=== PATIENT | female | born 1960 | race Caucasian/White ===

== ENCOUNTER → 2023-06-21 09:13 | Outpatient (CLI) | payer BC, SELFPAY ==
--- NOTE | ~2023-06-21 | XR_ITS ---
EXAMINATION: XR chest 2V DATE: 06/21/2023 09:22 INDICATION: Shortness of breath TECHNIQUE: PA and lateral views of the chest are obtained. COMPARISON: 02/24/2018 FINDINGS: The lungs are free of acute opacities. No pleural effusion or pneumothorax. The cardiomedia stinal silhouette is normal. There is moderate thoracic spondylosis. There is a moderate-sized slidin g hiatal hernia. IMPRESSION: 1. No acute cardiopulmonary abnormality. 2. Moderate-sized sliding hiatal hernia. Recommend clinical correlation for reflux which can result i n respiratory symptoms. Reviewed, dictated and finalized at location L. HANDISE COORDINATOR IMPRESSION: 1. No acute cardiopulmonary abnormality. 2. Moderate-sized sliding hiatal hernia. Recommend clinical correlation for ref lux which can result in respiratory symptoms.
== END ==
PROVIDERS: PCP Family Medicine; Visit Provider Family Medicine
DX: K44.9 Diaphragmatic hernia without obstruction or gangrene (principal); J45.909 Unspecified asthma, uncomplicated
CPT/HCPCS: 71046

== ENCOUNTER 2023-07-18 09:22 | Outpatient (CLI) | payer BC, SELFPAY ==
--- NOTE | 2023-07-18 09:26 | ECHO_ITS ---
Patient Info Name: Evon Ramos Age: 62 years : 1960 Gender: Female Ht: 66 in Wt: 240 lbs BSA: 2.30 m2 HR: 70 bpm BP: 145 / 93 mmHg Technical Quality: Fair Exam Date: 07/18/2023 9:43 AM Exam Location: Echo Lab Patient Status: Outpatient Admit Date: 07/18/2023 Staff Ordering Physician: Prakash Walker MD Fire Control Assistant: Sindi Underwood RDCS Attending Provider: Prakash Walker MD Referring Physician: Denise QUINTANILLA; Exam Type: CA echo doppler color flow Study Info Indications R06.02 - Shortness of breath Complete two-dimensional, color flow and Doppler transthoracic echocardiogram is performed. Summary 1. Complete two-dimensional, color flow and Doppler transthoracic echocardiogram is performed. 2. Left ventricular chamber dimension is mildly enlarged. 3. Left ventricular systolic function is normal, estimated at 55-60%. 4. The left ventricular diastolic function is grade I diastolic dysfunction. 5. E/e' 20 is elevated. 6. Left atrial chamber dimension is moderately enlarged. 7. There is mild to moderate mitral valve regurgitation. 8. There is trace tricuspid valve regurgitation. 9. No pulmonary hypertension, estimated pulmonary arterial systolic pressure is 32 mmHg. Left Ventricle E/e' 20 is elevated. Left ventricular chamber dimension is mildly enlarged. Left ventricular systolic function is normal, estimated at 55-60%. The left ventricular diastolic function is grade I diastolic dysfunction. Right Ventricle Right ventricular systolic function is normal and with normal TAPSE 2.0 cm. Right ventricular chamber dimension is normal. Left Atria Left atrial chamber dimension is moderately enlarged. Right Atria Right atrial chamber dimension is normal. Aortic Valve The aortic valve is trileaflet. There is no aortic valve stenosis. There is no aortic valve regurgitation. Pulmonic Valve There is no pulmonic regurgitation. Mitral Valve There is no mitral valve stenosis. There is mild to moderate mitral valve regurgitation. Tricuspid Valve There is trace tricuspid valve regurgitation. No pulmonary hypertension, estimated pulmonary arterial systolic pressure is 32 mmHg. Pericardium/Pleural There is no pericardial effusion. Inferior Vena Cava Normal inferior vena cava with >50% collapse upon inspiration consistent with normal right atrial pressure, 5 mmHg. Aorta The aortic root size at the sinus of Valsalva is normal. Left Ventricular Outflow Tract Name Value Normal LVOT 2D LVOT Diameter 2.0 cm LVOT Doppler LVOT Peak Gradient 5 mmHg LVOT Mean Gradient 3 mmHg LVOT VTI 23 cm LVOT VTI/AV VTI Ratio 0.8 LVOT Stroke Volume 76 ml LVOT CO 5.3 l/min LVOT CI 2.3 l/min/m2 Pulmonic Valve Name Value Normal RVOT Doppler RVOT Pe
== END 2023-07-18 09:23 | disposition home or self-care (01) ==
LOC: ANHCARD 09:24
PROVIDERS: PCP Family Medicine; Visit Provider Family Medicine
DX: R06.02 Shortness of breath (principal); I08.1 Rheumatic disorders of both mitral and tricuspid valves
CPT/HCPCS: 93306

== ENCOUNTER 2024-04-05 15:48 | Outpatient (CLI) | payer OTHER, SELFPAY ==
--- NOTE | ~2024-04-05 | XR_ITS ---
EXAMINATION: XR hip LT min 2V DATE: 04/05/2024 16:09 INDICATION: Left hip pain. TECHNIQUE: 2 views of left hip were obtained. COMPARISON: None. FINDINGS: Alignment is normal. No fracture. There is mild left hip osteoarthritis. IMPRESSION: 1. Mild left hip osteoarthritis. Reviewed, dictated and finalized at location A. CE NURSE
== END 2024-04-05 15:49 | disposition home or self-care (01) ==
LOC: MICIMG 15:48
PROVIDERS: PCP Family Medicine; Visit Provider Family Medicine
DX: M16.12 Unilateral primary osteoarthritis, left hip (principal)
CPT/HCPCS: 73502

== ENCOUNTER 2024-05-23 12:36 | Outpatient (CLI) | payer OTHER, SELFPAY ==
--- NOTE | ~2024-05-23 | MR_ITS ---
EXAMINATION: MR hip LT wo con DATE: 05/23/2024 13:27 INDICATION: Left hip pain TECHNIQUE: Magnetic resonance imaging (MRI) of the left hip was performed without intravenous contra st. Sequences included full-field axial PD-weighted FS FSE and T1-weighted FSE, coronal of the pelvis with PD-weighted FS FSE, T2-weighted FSE and T1-weighted FSE, small field of view of the left hip w ith axial PD-weighted FS FSE, sagittal PD-weighted FS FSE, coronal PD-weighted FS FSE and coronal T2 weighted FSE. Additional radial T1-weighted FGR oriented orthogonal to the acetabular rim were obtai derrick for evaluation of the labrum. COMPARISON: Radiographs dated 04/30/2024 FINDINGS: Bones/labrum/cartilage: Mild lower lumbar levocurvature with severe spondylosis. Alignment is otherwise normal. No fracture, avascular necrosis or pathologic marrow replacing process. Mild osteoarthritis at the left hip with a nterosuperior predominant nonuniform joint space narrowing with partial thickness cartilage loss with out degenerative subchondral changes. Degenerative tearing of the anterosuperior left acetabular labr um. Fluid: Asymmetric small left hip joint effusion. There is mild increased fluid signal overlying the left gre ater trochanter consistent with mild trochanteric bursitis. No other abnormal fluid collections. Soft tissues: There is asymmetric mild right-sided and moderate left-sided fatty atrophy of portions of the gluteus minimus muscle bellies. Muscle and visualized pelvis and proximal thighs appears otherwise symmetric . The iliopsoas, gluteal and proximal hamstring tendons are normal. There is abnormal thickening of t he endometrial complex measures approximately 7 mm. On the coronal T1-weighted images post signal int ensity filling defect within the T1 hyperintense endometrial complex which measures up to 7 mm in thi ckness. Limited evaluation of visceral organs of the pelvis is otherwise unremarkable. No pathologic ally enlarged pelvic/inguinal lymphadenopathy. IMPRESSION: 1. Mild left hip osteoarthritis with degenerative tearing at the anterosuperior labrum and small join t effusion. 2. Mild left trochanteric bursitis. 3. Mild lower lumbar levocurvature with severe spondylosis. 4. Heterogeneous appearance to the thickened endometrial complex. Correlate for vaginal bleeding and would consider pelvic ultrasound for further evaluation. Reviewed, dictated and finalized at location A. RESCUE FIRE FIGHTER CRASH FIRE IMPRESSION: 1. Mild left hip osteoarthritis with degenerative tearing at the anterosuperior labrum and small joint effusion. 2. Mild left trochanteric bursitis. 3. Mild lower lumbar levocurvature with severe spondylosis. 4. Heterogeneous appearance to the thickened endometrial complex. Correlate for vaginal bleeding and would consider pelvic ultrasound for further evaluation.
== END 2024-05-23 12:37 | disposition home or self-care (01) ==
LOC: GOSHIMG 12:37
PROVIDERS: PCP Family Medicine; Visit Provider Orthopaedic Surgery
DX: M16.12 Unilateral primary osteoarthritis, left hip (principal); M25.552 Pain in left hip; M71.552 Other bursitis, not elsewhere classified, left hip; M43.06 Spondylolysis, lumbar region; M41.86 Other forms of scoliosis, lumbar region; R93.89 Abnormal findings on diagnostic imaging of other specified body structures
CPT/HCPCS: 73721

== ENCOUNTER 2024-07-05 00:43 | Day surgery (SDC) | payer OTHER, SELFPAY ==
[2024-06-29 11:03] VITALS: BMI 38.4
--- NOTE | 2024-06-29 11:22 | PC.NURSE ---
Report to the Outpatient Waiting Room, entrance under the green pavilion located off [facility], at time ___8:15AM____ on date __07/05/24 . Planned Procedure Time: ___10:15AM .? Time changes happen often and if your time is changed the preop area will call you the afternoon before. - You and your visitor will be asked to self-screen and do not enter if you have any COVID symptoms. Please call surgeon if you need to reschedule. - A mask is optional within the hospital at this time. Patients may have clear liquids (water, carbonated beverages, clear teas, apple juice) until 3 hours prior to surgery (7:15AM) with a maximum of 20 ounces. - No food from midnight until time of surgery and no smoking, or chewing tobacco (or any form of nicotine). No chewing gum, candy or mints. Take only the following medications with a SIP of water on the morning of surgery: SYMBICORT INHALER. MAY USE ALBUTEROL INHALER NEEDED. DO NOT STOP ANY OF YOUR OTHER PRESCRIPTION MEDICATIONS PRIOR TO SURGERY EXCEPT THE FOLLOWING Hold all vitamins and supplements for 3 days per anesthesiologist. Medications to discontinue per physician HOLD DICLOFENAC PER DR ORELLANA Date to take last dose Please no make-up, nail maori, hairspray, perfume, deodorant, or body powder the day of surgery.? No jewelry (including any body piercings) or valuables the day of surgery, leave them at home.? Please take a shower or bath the night before, or the morning of, surgery with an antibacterial soap.? Wear comfortable, loose fitting clothing.? - Jewelry must be removed prior to entering the operating room.? Rings and piercings that are not removed may be cut off. - The hospital will not accept responsibility for valuables.? - Please leave all valuables, including medications, at home the day of surgery. If you are going home after surgery, a licensed charter driver must drive you home.? - NO public transportation without another adult if you receive anesthesia. - We recommend that an adult stay with you for 24 hours following discharge. - We also recommend that you do not drive, make important decision, drink alcoholic beverages, or take any drugs that were not prescribed by your health care provider for at least 24 hours after your discharge time. Follow any additional instructions given to you from your surgeon. Telephone instructions given to ___PATIENT and asked if any additional questions and then verbalized understanding. Patient advised to call surgeon office or pre surgery nurse liaison [phone] if any additional questions.
--- NOTE | 2024-07-03 17:27 | WPDHPUPDATE1 ---
History and Physical Update Update Date/Time: 07/03/24 17:27 ultrasound performed due to endometrial hypertrophy incidentally found on imaging of the pelvis due to hip pain. Ultrasound did reveal essentially normal size uterus at [id number] though endometrial thickness of 11mm which is thick and irregular. She has had no bleeding or pain specific to the uterus, does need endometrial sampling. Assessment: 1. Endometrial hypertrophy in a postmenopausal female Plan: 1. Hysteroscopy with uterine curettings History and Physical has been reviewed, including an updated exam of the patient. There are NO changes in the patient's condition. Risks, benefits, and alternatives have been discussed and questions answered. Patient agrees to proceed with procedure.
--- OUTSIDE RECORDS SUMMARY | 2024-07-05 00:48 | XMS_ITS | Clinical Summary ---
Author Organization [facility] Address [address] [place] [address] Care Team Providers Care Cardiac Cath Technician Name Role Phone Prakash Walker MD Primary Care Provider [phone] Allergies Active Allergy Reactions Criticality Noted Date Comments Penicillins Medications [id number] a-fish oil-D3 (VITAMIN-D + OMEGA-3) 350 mg-400 mg- 1,000 unit capsule 0 0 6 Active albuterol HFA (PROAIR HFA) 90 mcg/actuation inhaler inhale 2 puff by inhalation route every 4 - 6 hours as needed 0 Inhaler 0 6 Active budesonide-form oterol (SYMBICORT) 80-4.5 mcg/actuation inhaler inhale 2 puff by inhalation route 2 times every day in the morning and evening 0 Inhaler 0 6 Active Active Problems Problem Noted Date Diagnosed Date Nonrheumatic mitral valve regurgitation 03/05/20 24 HICKS (dyspnea on exertion) 01/16/2024 Fatigue due to excessive exertion 01/16/2024 Encounters Date Type Department Care Team Description 05/03/2024 10:07 AM LIFE SCIENCE RESEARCH ASSISTANT - 05/03/2024 11:59 PM LIFE SCIENCE RESEARCH ASSISTANT Hospital Encounter [facility] Imaging and Radiiology [address] [place] [phone] Asymptomatic menopausal state Discharge Disposition: Discharge to home or self care 04/13/2024 11:00 AM LIFE SCIENCE RESEARCH ASSISTANT - 04/13/2024 11:59 PM LIFE SCIENCE RESEARCH ASSISTANT Hospital Encounter [facility] ` [address] [place] [address] Other intra-abdominal and pelvic swelling, mass and lump Discharge Disposition: Discharge to home or self care from Last 3 Months Immunizations Immunization Administration Dates Next Due Influenza, Trivalent, IM (MDV) 02/07/2014 ZOSTER Recombinant 05/17/2018,02/23/2018 Surgical History Surgery Date Site/Laterality Comments TONSILLECTOMY Tonsillectomy KNEE ARTHROSCOPY Arthroscopy knee KNEE ARTHROSCOPY W/ LATERAL RELEASE knee.....1991 CATARACT EXTRACTION 2019 Medical History Medical History Date Comments Asthma Asthma Hx Other Medical right knee 1989 Hx Other Medical right knee 2005 Hx Other Medical Sinus Surgery 2 014 Shortness of breath Family History Medical History Relation Name Comments Diabetes Brother Joey Swanson COPD Father [place] Arthritis Mother Niki Swanson Cardiac pacemaker Mother Niki Swanson Hypertension Mother Niki Ruizchojames Kidney disease Mother Niki Swanson Arthritis Other 1 Family history of Arthritis; Diabetes type II Other 2 Family hist ory of Diabetes mellitus type 2; Heart disease Other 3 Family history of heart problems; Kidney disease Other 4 Family histor y of kidney problems; Lung disease Other 5 Family history of Lung problems; Relation Name Status Comments Brother Joey Swanson Father [place] Mother Niki Swanson Other 1 Other 2 Other 3 Other 4 Other 5 Social History Tobacco Use Types Packs/Day Years Used Date Smoking Tobacco: Never Smokeless Tobacco: Never Tobacco Cessation:Counseling Given: Not Answered Comments Unknown Sex and Gender Information Value Date Recorded Sex Assigned at Not on file Legal Sex Female 3:22 AM LIFE SCIENCE RESEARCH ASSISTANT Gender Identity Not on file Sexual Orientation Not on file Obstetrics History Last Filed Vital Signs Vital Sign Reading Time Taken Comments Blood Pressure 112/76 03/05/2024 11:25 AM LIFE SCIENCE RESEARCH ASSISTANT Pulse 66 03/05/2024 11:25 AM LIFE SCIENCE RESEARCH ASSISTANT Temperature - - Respiratory Rate - - Oxygen Saturation 98% 03/05/2024 11: 25 AM LIFE SCIENCE RESEARCH ASSISTANT Inhaled Oxygen Concentration - - Weight 112.5 kg (248 lb 1.6 oz) 024 11:25 AM LIFE SCIENCE RESEARCH ASSISTANT Height 167.6 cm (5' 6 ) 03/05/2024 11:2 5 AM LIFE SCIENCE RESEARCH ASSISTANT Body Mass Index 40.04 03/05/2024 11:25 AM LIFE SCIENCE RESEARCH ASSISTANT Plan of Treatment Health Maintenance Due Date Last Done Comments Cervical Cancer Screening 1960 Depression Screening 1960 Fall Risk Assessment 1960 Hepatitis C Screening 1960 DTaP/Tdap/Td Vaccine (1 - Tdap) 1969 Hepatitis B Screening 1976 Pneumococcal vaccine 65+ (1 of 1 - PCV) 2008 Well Visit 65+ 09/30/2023 Influenza Vaccine (#1) 2023 02/07/2014 Colon Cancer Screening-Colonoscopy 01/15/2024 01/14/2014, 01/11/2014 Breast Cancer Screening-Mammogram 03/08/2025 03/08/2024, 03/01/2023, 01/04/2022, Additional history exists Osteoporosis Screening-Bone Density Scan 05/03/2026 05/03/2024 Colon Cancer Screening-CT Colonography Discontinued 01/14/2014, 01/11/2014 Colon Cancer Screening-DNA Stool Discontinued 01/15/20 14, 01/11/2014 Colon Cancer Screening-FIT Discontinued 01/14/2014, Colon Cancer Screening-Sigmoidoscopy Discontinued 01/14/2014, 01/11/2014 Zoster Vaccine Completed 05/17/2018, 02/23/2018 Procedures Procedure Name Priority Date/Time Associated Diagnosis Comments DEXA AXIAL SKELETON BONE DENSITY 1 OR MORE SITES Schedule Routine, Read Routine (OP Routine) 05/03/2024 10:49 AM LIFE SCIENCE RESEARCH ASSISTANT Asymptomatic menopausal state US GROIN MASS/HERNIA LEFT Schedule Routine, Read Routine (OP Routine) 04/13/2024 11:37 AM LIFE SCIENCE RESEARCH ASSISTANT Other intra-abdominal and pelvic swelling, mass and lump SCREENING MAMMOGRAM BILATERAL W BRENNAN Schedule Routine, Read Routine (OP Routine) 03/08/2024 11:21 AM LIFE SCIENCE RESEARCH ASSISTANT Screening mammogram, encounter for COLONOSCOPY 01/14/2014 12:00 AM CDT from Last 3 Months or Most Recently Relevant to Health Maintenance Results * Dexa Axial Skeleton Bone Density 1 or 2 Site (05/03/2024 10:49 AM LIFE SCIENCE RESEARCH ASSISTANT) Anatomical Region Laterality Modality Body N/A Other 05/03/2024 11:0 8 AM LIFE SCIENCE RESEARCH ASSISTANT Impressions 05/03/2024 11:08 AM LIFE SCIENCE RESEARCH ASSISTANT Normal bone mineral density of lumbar spine at L1-L4 and the left hip. Electronically signed by: Boogie Carrillo M.D. Narrative 05/03/2024 11:08 AM LIFE SCIENCE RESEARCH ASSISTANT Examination: DEXA AXIAL SKELETON BONE DENSITY 1 OR MORE SITES Date: 05/03/2024 10:30 AM History: Osteoporosis screening. Comparison: None. Findings: The bone densitometry of the L1-L4 region, the left femoral neck and the total left hip was calculated using dual-energy x-ray absorptiometry. Summary: Bone mineral density (BMD) of the lumbar spine (L1-4): T-score 0.3; 103% of normal Bone mineral density (BMD) of the total left hip: T-score 1.1; and 14% of normal Bone mineral density (BMD) of the left femoral neck: T-score 0.2; 102% of normal Procedure Note Boogie Carrillo MD - 05/03/2024 Examination: DEXA AXIAL SKELETON BONE DENSITY 1 OR MORE SITES Date: 05/03/2024 10:30 AM History: Osteoporosis screening. Comparison: None. Findings: The bone densitometry of the L1-L4 region, the left femoral neck and the total left hip was calculated using dual-energy x-ray absorptiometry. Summary: Bone mineral density (BMD) of the lumbar spine (L1-4): T-score 0.3; 103% of normal Bone mineral density (BMD) of the total left hip: T-score 1.1; and 14% of normal Bone mineral density (BMD) of the left femoral neck: T-score 0.2; 102% of normal IMPRESSION: Normal bone mineral density of lumbar spine at L1-L4 and the left hip. Electronically signed by: Boogie Carrillo M.D. us Prakash Walker MD IMG DXA PROCEDURES Final Resu lt * US Groin Mass Hernia Left (04/13/2024 11:37 AM LIFE SCIENCE RESEARCH ASSISTANT) Anatomical Region Laterality Modality Abdomen Left Ultrasound 04/13/2024 2:46 PM LIFE SCIENCE RESEARCH ASSISTANT Impressions 04/13/2024 2:46 PM LIFE SCIENCE RESEARCH ASSISTANT FINDINGS/IMPRESSION: Increased subcutaneous fat within the region of palpable concern in the left thigh as compared to the right. However, no definitive encapsulated lipoma is visualized. Electronically signed by: David Barnes II, D.O. Narrative 04/13/2024 2:46 PM LIFE SCIENCE RESEARCH ASSISTANT EXAMINATION: US GROIN MASS HERNIA LEFT DATE: 04/13/2024 11:30 AM HISTORY: thigh swelling COMPARISON: None. Technique: Grayscale and color Doppler images were obtained in the left inner thigh region of palpable concern. Procedure Note David Barnes II, DO - 04/13/2024 EXAMINATION: US GROIN MASS HERNIA LEFT DATE: 04/13/2024 11:30 AM HISTORY: thigh swelling COMPARISON: None. Technique: Grayscale and color Doppler images were obtained in the left inner thigh region of palpable concern. IMPRESSION: FINDINGS/IMPRESSION: Increased subcutaneous fat within the region of palpable concern in the left thigh as compared to the right. However, no definitive encapsulated lipoma is visualized. Electronically signed by: David Barnes II, D.O. us Prakash Walker MD IMG US PROCEDURES Final Resul t * Screening Mammogram Bilateral W Brennan (03/08/2024 11:21 AM LIFE SCIENCE RESEARCH ASSISTANT) Anatomical Region Laterality Modality Breast Bilateral Mammography Narrative 03/09/2024 12:02 PM LIFE SCIENCE RESEARCH ASSISTANT Mammogram Technique: Bilateral Digital Breast Tomosynthesis, Bilateral C-view 2D Screening mammogram. Views obtained: bilateral craniocaudal and bilateral mediolateral oblique. Computer Aided Detection was performed. Mammogram Findings: The present examination has been compared to prior imaging studies performed at [facility] on 07/28/2017, 08/09/2018, 11/01/2019, 11/11/2020, 01/04/2022 and 03/01/2023. The breasts are heterogeneously dense, which may obscure small masses. There are multiple similar stable areas of architectural distortion in both breasts. The patient has had several benign biopsies of these areas in the past. There is no suspicious abnormality in either breast. Impression: There is no mammographic evidence of malignancy. Annual screening mammography is recommended. If supplemental screening is desired, breast MRI would be recommended in this patient with heterogeneously dense breasts. OVERALL FINAL ASSESSMENT: BI-RADS CATEGORY 2: Benign. Procedure Note Dakotah Ramirez MD - 03/09/2024 Mammogram Technique: Bilateral Digital Breast Tomosynthesis, Bilateral C-view 2D Screening mammogram. Views obtained: bilateral craniocaudal and bilateral mediolateral oblique. Computer Aided Detection was performed. Mammogram Findings: The present examination has been compared to prior imaging studies performed at [facility] on 07/28/2017, 08/09/2018,11/01/2019, 11/11/2020, 01/04/2022 and 03/01/2023. The breasts are heterogeneously dense, which may obscure small masses. There are multiple similar stable areas of architectural distortion inboth breasts. The patient has had several benign biopsies of these areas in the past. There is no suspicious abnormality in either breast. Impression: There is no mammographic evidence of malignancy. Annual screening mammography is recommended. If supplemental screeningis desired, breast MRI would be recommended in this patient with heterogeneously dense breasts. OVERALL FINAL ASSESSMENT: BI-RADS CATEGORY 2: Benign. us Self Screening Mammogram IMG MAMMO PROCEDURES Fi nal Result * COLONOSCOPY (01/14/2014 12:00 AM CDT) Anatomical Region Laterality Modality Other Narrative 01/14/2014 12:00 AM CDT Ordered by an unspecified provider. Procedure Note Akira Mcneil MD - 01/11/2014 8:50 AM CDT PROCEDURE REPORT Patient: EVON SWANSON Account: [id number] Room No: : 1960 Patient Type: SDS Attend.: David Hollins M.D. Admit Date: 01/11/2014 Dict.: David Hollins M.D. Disch. Date: 01/11/2014 NAME OF PROCEDURE: Colonoscopy HISTORY OF PRESENT ILLNESS This 53-year-old female presents for screening colonoscopy. PHYSICAL EXAM: Well-developed female. Lungs are clear. Cardiovascular exam isunremarkable. PROCEDURE: Colonoscopy was performed with the Olympus video endoscope. The patientwas premedicated by anesthesia. On digital exam, she has grade IV hemorrhoids.We inserted the endoscope and advanced it to the cecum. The colon wasadequately prepped. She has diffuse diverticular disease involving the entirecolon, however, I am not able to demonstrate any evidence of inflammation orneoplasia anywhere through the length of the bowel. The patient tolerated theprocedure without difficulty. POSTOPERATIVE DIAGNOSIS Diffuse diverticulosis. Hemorrhoidal disease. PLAN Surveillance in ten years. David Hollins M.D. DR/ashley TD: 01/15/2014 05:52 CC: Sarahi Nieto M.D. Authenticated by David Hollins MD On 01/17/2014 07:36:04 AM Historical Provider ENDOSCOPY PROCEDURES Sadie l Result from Last 3 Months or Most Recently Relevant to Health Maintenance Insurance [place] [facility] ADVANTAGE CHOICE PPO Member Subscriber Plan / Payer ( fective 2023-Present) Name:Evon Swanson Relation to Subscriber:Self Name:Evon Swanson Payer ID:[id number] ([facility]) Type:MEDICARE RISK OTHER Address: [place] [id number] [facility] ADVANTAGE CHOICE PPO Care Teams Cardiac Cath Technician Relationship Specialty Start Date End Date Prakash Walker MD [address] [place] [address] [place] [address] PCP - General 07/28/16
--- OUTSIDE RECORDS SUMMARY | 2024-07-05 00:48 | XMS_ITS | Encounter Summary ---
Author Organization [facility] Address [address] [place] [address] Care Team Providers Care Maintenance And Engineering Manager Name Role Phone Prakash Walker MD Primary Care Provider [phone] Encounter Details Date Type Department Care Team (Late st Contact Info) Description 09/16/2020 Prep for Procedure [facility] Pre-Admission Testing [address] [place], [place] [id number] Yulissa Barrientos, DPM [address] [facility] [address] [place] [address] Social History Tobacco Use Types Packs/Day Years Used Date Smoking Tobacco: Never Smokeless Tobacco: Never Alcohol Use Standard Drinks/Week Comments Yes 0 (1 standard drink = 0.6 oz pur e alcohol) 1x/week Comments No Sex and Gender Information Value Date Recorded Sex Assigned at Not on file Legal Sex Female 2:33 PM CDT Gender Identity Not on file Sexual Orientation Not on file COVID-19 Exposure Response Date Recorded In the last month, have you been in contact with someone who was confirmed or suspected to have Coronavirus / COVID-19? No / Unsure 09/16/2020 11:50 AM CDT documented as of this encounter Plan of Treatment Not on file documented as of this encounter Visit Diagnoses Diagnosis Preop examination- Primary Preoperative examination, unspecified documented in this encounter Additional Health Concerns Infection Onset Date Last Indicated Resolved Time COVID-19 Rule Out 09/22/2020 09/22/2020 09/23/2020 12:11 AM CDT documented as of this encounter Care Teams Maintenance And Engineering Manager Relationship Specialty Start Date End Date Prakash Walker MD [address] [place] [address] PCP - General FAMILY PRACTICE 09/16/20 documented as of this encounter
--- OUTSIDE RECORDS SUMMARY | 2024-07-05 00:48 | XMS_ITS | Continuity of Care Document ---
Author Organization [facility] Address [address] [facility] [address] [place] [address] Phone Care Team Providers Care Television Equipment Operator Name Role Phone Eddi Lacy PT Unavailable Unavailable Procedures Procedure Date Therapeutic Activities Neuromuscular Re-Ed Therapeutic Exercise Therapeutic Activities Neuromuscular Re-Ed Therapeutic Exercise Therapeutic Activities Neuromuscular Re-Ed Therapeutic Exercise Therapeutic Activities Neuromuscular Re-Ed Therapeutic Exercise Therapeutic Activities Neuromuscular Re-Ed Therapeutic Exercise Therapeutic Activities Neuromuscular Re-Ed Therapeutic Exercise Therapeutic Activities Neuromuscular Re-Ed Therapeutic Exercise PT Evaluation Moderate Complexity Therapeutic Activities Neuromuscular Re-Ed Advance Directives Directive Yes / No Effective Date File Name No Information Encounters Encounter Description Practice Location Reason(s) For Visit Diagnoses Date Provider Providers Copied on Encounter [facility], [address], [place], [place], [id number], tel:[phone] [place] No Information 3 Regino Montague. . Referring Provider: Christel Chauhan , [address], [place], [address]. tel:[phone] [facility], [place], [place], [address], [place] tel:[phone] [place] No Information 3 Regino Eddi. . Referring Provider: Christel Chauhan , [address], [place], [address]. tel:[phone] [facility] [address], [place], [place], [address], [place] tel:[phone] [place] No Information 3 Regino Eddi. . Referring Provider: Christel Chauhan [address], [place], [address]. tel:[phone] [facility], [place], [place], [address], [place] tel:[phone] [place] No Information 3 Regino Eddi. . Referring Provider: Christel Chauhan [address], [place], [address]. tel:[phone] [facility] [address], [place], [place], [address], [place] tel:[phone] [place] No Information 2 Regino Eddi. . Referring Provider: Christel Chauhan [address], [place], [address]. tel:[phone] [facility], [place], [place], [address], [place] tel:[phone] [place] No Information 2 Regino Eddi. . Referring Provider: Christel Chauhan [address], [place], [address]. tel:[phone] [facility], [place], [place], [address], [place] tel:[phone] [place] No Information Dec- 2 Regino Montague. . Referring Provider: Christel Chauhan , [address], [place], [address]. tel:[phone] [facility], [address] [facility] [address], [place], [place], [id number], tel:[phone] [place] No Information 2 Regino Gil . Referring Provider: Christel Chauhan , [address], [place], [address]. tel:[phone] Family History Family Member Type Diagnosis Age At Onset No Information Payers Payer name Insurance type Covered green party ID Millie monk(s) [facility] [id number] Social History Type Description Quantity Date Captured Comments Sex Female Smoking Status No Information Chief Complaint And Reason For Visit No Information Reason For Referral Reason For Referral No Information History Of Present Illness Encounter Date Complaint History Of Prese nt Illness No Information Functional Status Date Functional Assessmen t No Information Instructions Date Instruction Additional Infor mation Dietary needs education Related to Overweight Prescribed activity/exercise edu cation Related to Overweight Assessments Type Assessment Date No Information Patient Care Teams Name Effective Dates (start - stop) Status Members No Information
--- OUTSIDE RECORDS SUMMARY | 2024-07-05 00:48 | XMS_ITS | Clinical Summary ---
Author Organization [facility] Address [facility] [place] [address] Care Team Providers Care Merchandise Stocker Name Role Phone Prakash Walker MD Primary Care Provider [phone] Allergies Active Allergy Reactions Criticality Noted Date Comments Penicillins Unknown 09/16/2020 As a child Medications budesonide-formo terol 160-4.5 MCG/ACT inhaler Inhale 2 puffs into the lungs 2 (two) times daily. Active albuterol sulfate HFA 108 (90 Base) MCG/ACT inhaler Inhale 2 puffs into the lungs every 6 (six) hours as needed for Wheezing. Active Ascorbic Acid (VITAMIN C) 100 MG tablet Take 100 mg by mouth daily. Active Cholecalciferol (VITAMIN D) 50 MCG (2000 UT) Tab Take 1 tablet by mouth daily. Active Active Problems No known active problems Family History Medical History Relation Comments Diabetes Brother 1 Diabetes Brother 2 COPD Father None Mother Relation Status Comments Brother 1 (Age 61) Brother 2 Alive Father (Age 50) Emphysema Mother (Age 96) Social History Tobacco Use Types Packs/Day Years Used Date Smoking Tobacco: Never Smokeless Tobacco: Never Alcohol Use Standard Drinks/Week Comments Yes 0 (1 standard drink = 0.6 oz pur e alcohol) 1x/week Comments No Sex and Gender Information Value Date Recorded Sex Assigned at Not on file Legal Sex Female 2:33 PM CDT Gender Identity Not on file Sexual Orientation Not on file Last Filed Vital Signs Vital Sign Reading Time Taken Comments Blood Pressure 138/89 09/24/2020 10:35 AM CDT Pulse 80 09/24/2020 10:35 AM CDT Temperature 36.6 C (97.8 F) 09/24/2020 10:35 AM CDT Respiratory Rate 18 09/24/2020 10:3 5 AM CDT Oxygen Saturation 95% 09/24/2020 10: 35 AM CDT Inhaled Oxygen Concentration - - Weight 107.8 kg (237 lb 10.5 oz) 09/24/2020 6:22 AM CDT Height 167.6 cm (5' 6 ) 09/24/2020 6:22 AM CDT Body Mass Index 38.36 09/24/2020 6:22 AM CDT Plan of Treatment Health Maintenance Due Date Last Done Comments Colorectal Cancer Screening Colonoscopy (10 Years) 1960 Hepatitis C 1976 DTaP, Tdap and Td Vaccines ( 1 - Tdap) 1977 Mammogram Screening 1998 Zoster Vaccines (2 of 2) 07/12/2018 05/17/2018 Dexa Scan (General) 09/30/2023 Pneumococcal Vaccine: 65+ Ye ars (1 of 1 - PCV) 09/30/2023 COVID-19 Vaccine (2 - 2023-2 5 season) 2023 06/26/2020 Influenza Adult (#1) 2024 RSV Immunization or 60+ Years (1 - 1-dose 75+ series) 2033 Meningococcal B Vaccine Aged Out No l onger eligible based on patient's age to complete this topic Meningococcal Vaccine Aged Out No ondina swapna eligible based on patient's age to complete this topic Pneumococcal Vaccine: Pediat rics (0 to 5 Years) and At-Risk Patients (6 to 64 Years) Aged Out No longer eligi ble based on patient's age to complete this topic RSV Immunizations Under 20 Months Aged Out No longer eligible based on patient's age to complete this topic Medical Devices Implanted Type Area Frame Pulley Mortising Machine Operator Device Identifier Shelf Expiration Date Model / Serial / Lot Screw [place] [employer]a 3.0mm X 16mm - [id number] Implanted:Qty: 2 on 09/24/2020 by Yulissa Barrientos DPM at [facility] [employer] Screw Right: Foot [employer] JOANNE [id number] / / Description:CANNULATED SCREW Osteosynthesis Compression Staple Implanted:Qty: 1 on 09/24/2020 by Yulissa Barrientos DPM at [facility] [employer] Staple Right: Foot [employer] JOANNE [id number] / / Description:COMPRESSION STAP LE Insurance [facility] Care Teams Merchandise Stocker Relationship Specialty Start Date End Date Prakash Walker MD [address] [place] [id number] PCP - General FAMILY PRACTICE 09/16/20
--- OUTSIDE RECORDS SUMMARY | 2024-07-05 00:48 | XMS_ITS | Referral Summary ---
Author Organization [facility] Address [address] [place] [address] Care Team Providers Care Black Top Paver Operator Name Role Phone Prakash Walker MD Primary Care Provider Encounters Date Type Department Care Team Description 05/03/2024 10:07 AM PERSONAL SECRETARY - 05/03/2024 11:59 PM PERSONAL SECRETARY Hospital Encounter [facility] [address] [place] [address] Asymptomatic menopausal state Discharge Disposition: Discharge to home or self care 04/13/2024 11:00 AM PERSONAL SECRETARY - 04/13/2024 11:59 PM PERSONAL SECRETARY Hospital Encounter [facility] [id number] [place] [address] Other intra-abdominal and pelvic swelling, mass and lump Discharge Disposition: Discharge to home or self care from Last 3 Months Allergies Active Allergy Reactions Criticality Noted Date Comments Penicillins Medications [id number] a-fish oil-D3 (VITAMIN-D + OMEGA-3) 350 mg-400 [...] 01/16/2024 Fatigue due to excessive exertion 01/16/2024 Immunizations Immunization Administration Dates Next Due Influenza, Trivalent, IM (MDV) 02/07/2014 ZOSTER Recombinant 05/17/2018,02/23/2018 Social History Tobacco Use Types Packs/Day Years Used Date Smoking Tobacco: Never Smokeless Tobacco: Never Tobacco Cessation:Counseling Given: Not Answered Comments Unknown Sex and Gender Information Value Date Recorded Sex Assigned at Not on file Legal Sex Female 3:22 AM PERSONAL SECRETARY Gender Identity Not on file Sexual Orientation Not on file Last Filed Vital Signs Vital Sign Reading Time Taken Comments Blood Pressure 112/76 03/05/2024 11:25 AM PERSONAL SECRETARY Pulse 66 03/05/2024 11:25 AM PERSONAL SECRETARY Temperature - - Respiratory Rate - - Oxygen Saturation 98% 03/05/2024 11: 25 AM PERSONAL SECRETARY Inhaled Oxygen Concentration - - Weight 112.5 kg (248 lb 1.6 oz) 024 11:25 AM PERSONAL SECRETARY Height 167.6 cm (5' 6 ) 03/05/2024 11:2 5 AM PERSONAL SECRETARY Body Mass Index 40.04 03/05/2024 11:25 AM PERSONAL SECRETARY Plan of Treatment Not on file Procedures Procedure Name Priority Date/Time Associated Diagnosis Comments DEXA AXIAL SKELETON BONE DENSITY 1 OR MORE SITES Schedule Routine, Read Routine (OP Routine) 05/03/2024 10:49 AM PERSONAL SECRETARY Asymptomatic menopausal state US GROIN MASS/HERNIA LEFT Schedule Routine, Read Routine (OP Routine) 04/13/2024 11:37 AM PERSONAL SECRETARY Other intra-abdominal and pelvic swelling, mass and lump SCREENING MAMMOGRAM BILATERAL W BRENNAN Schedule Routine, Read Routine (OP Routine) 03/08/2024 11:21 AM PERSONAL SECRETARY Screening mammogram, encounter for COLONOSCOPY 01/14/2014 12:00 AM CDT from Last 3 Months or Most Recently Relevant to Health Maintenance Results * Dexa Axial Skeleton Bone Density 1 or 2 Site (05/03/2024 10:49 AM PERSONAL SECRETARY) Anatomical Region Laterality Modality Body N/A Other 05/03/2024 11:0 8 AM PERSONAL SECRETARY Impressions 05/03/2024 11:08 AM PERSONAL SECRETARY Normal bone mineral density of lumbar spine at L1-L4 and the left hip. Electronically signed by: Boogie Carrillo M.D. Narrative 05/03/2024 11:08 AM PERSONAL SECRETARY Examination: DEXA AXIAL SKELETON BONE DENSITY 1 [...] Groin Mass Hernia Left (04/13/2024 11:37 AM PERSONAL SECRETARY) Anatomical Region Laterality Modality Abdomen Left Ultrasound 04/13/2024 2:46 PM PERSONAL SECRETARY Impressions 04/13/2024 2:46 PM PERSONAL SECRETARY FINDINGS/IMPRESSION: Increased subcutaneous fat within the region of palpable concern in the left thigh as compared to the right. However, no definitive encapsulated lipoma is visualized. Electronically signed by: David Barnes II, D.O. Narrative 04/13/2024 2:46 PM PERSONAL SECRETARY EXAMINATION: US GROIN MASS HERNIA LEFT DATE: [...] Mammogram Bilateral W Brennan (03/08/2024 11:21 AM PERSONAL SECRETARY) Anatomical Region Laterality Modality Breast Bilateral Mammography Narrative 03/09/2024 12:02 PM PERSONAL SECRETARY Mammogram Technique: Bilateral Digital Breast Tomosynthesis, Bilateral C-view 2D Screening mammogram. Views obtained: bilateral craniocaudal and bilateral mediolateral oblique. Computer Aided Detection was performed. Mammogram Findings: The present examination has been compared to prior imaging studies performed at [facility] on 07/28/2017, 08/09/2018, 11/01/2019, 11/11/2020, 01/04/2022 and [...] compared to prior imaging studies performed at [facility] on 07/28/2017, 08/09/2018,11/01/2019, 11/11/2020, 01/04/2022 and 03/01/2023. [...] CDT PROCEDURE REPORT Patient: EVON SWANSON Account: [id number] Room No: : 1960 Patient Type: SDS [...] Most Recently Relevant to Health Maintenance [place] [address] [place] [employer] [facility] ADVANTAGE CHOICE PPO Member Subscriber Plan / Payer ( fective 2023-Present) Name:Evon Swanson Relation to Subscriber:Self Name:Evon Swanson Payer ID:[id number] ([facility]) Type:MEDICARE RISK OTHER Address: [place] [id number] [facility] ADV[employer]AGE CHOICE PPO Care Teams Black Top Paver Operator Relationship Specialty Start Date End Date Prakash Walker MD [address] [place] [address] [place] [address] PCP - General 07/28/16
--- OUTSIDE RECORDS SUMMARY | 2024-07-05 00:48 | XMS_ITS | Patient Health Record ---
Author Organization [facility] Address [address] [place], [place] [id number] Care Team Providers Care Negative Cleaner Name Role Phone COLLEEN ACEVEDO Unavailable [phone] Lety Walker Unavailable Unavailable LETY PACE Unavailable [phone] Allergies Allergen (clinical drug ingredient) Drug/Non Drug Allergy documented on EMR Reaction Allergy Type Onset Date Status Substance with penicillin structure and antibacterial mechanism of action (substance) Penicillins Unknown Drug Allergy 08/27/2020 active Reason For Referral No Information Immunizations Vaccine Route Administration Date Status Comme nts Pneumococcal conjugate PCV 13 Unknown 10/17/2023 Refuse d Pneumococcal conjugate PCV 13 Unknown 06/18/2024 Refuse d Influenza, high dose seasonal Unknown 10/17/2023 Refuse d Influenza, high dose seasonal Unknown 06/18/2024 Refuse d Vital Signs Height-cm 170.18 cm 10/17/2023 Weight-kg 104.33 kg 06/18/2024 Height 67.00 in 10/17/2023 Weight 230 lbs 06/18/2024 BMI 36.02 kg/m2 10/17/2023 Encounters Encounter Location Date Provider Diagnosis [facility] [place] [address] [place], [place] [id number] 10/17/2023 LETY PACE Hallux valgus (acquired), right foot M20.11 ; Other hammer toe(s) (acquired), right foot M20.41 ; Metatarsalgia, right foot M77.41 ; Tinea unguium B35.1 and Pain in right foot M79.671 [facility] [place] [address] [address] [place] [id number] 11/21/2023 LETY SNOOK Hallux valgus (acquired), right foot M20.11 ; Tinea unguium B35.1 ; Other hammer toe(s) (acquired), right foot M20.41 ; Metatarsalgia, right foot M77.41 and Pain in right foot M79.671 [facility] [place] [address] [address] [place] [id number] 03/19/2024 LETY SNOOK Tinea unguium B35.1 ; Acquired keratosis [keratoderma] palmaris et plantaris L85.1 ; Atherosclerosis of [place] arteries of extremities with intermittent claudication, bilateral legs I70.213 ; Pain in right foot M79.671 and Pain in left foot M79.672 [facility] [place] [address] [address] [place] [id number] 06/18/2024 LETY SNOOK Tinea unguium B35.1 ; Pain in right toe(s) M79.674 ; Pain in left toe(s) M79.675 and Atherosclerosis of [place] arteries of extremities with intermittent claudication, bilateral legs I70.213 [facility] [place] [address] [address] [id number] 10/18/2023 LETY SNOOK [facility] [place] [address] [id number] 11/30/2023 LETY SNOOK [facility] [place] [address] [address] [id number] 01/12/2024 LETY SNOOK Assessments Encounter Date Diagnosis (ICD Code) Assessment Notes Treatment Notes Treatment Clinical Notes Section Notes 10/17/2023 Hallux valgus (acquired), right foot (ICD-10 - M20.11) Bunion: Discussed various treatments with the patient regarding hallux abducto valgus deformity. Discussed conservative care consisting of padding, wider shoes, anti-inflammatories, and orthotics. Discussed surgical treatment options and answered all questions about the intra-operative and post-operative treatment course. Shoe Recommendation: Advised patient on appropriate shoe gear for protection, healing and good foot health. Orthotic Recommendation: I recommended functional orthotics for the patient. PowerStep Inserts: The patient was dispensed and fitted with over the counter arch supports. The patient was educated on their use and effect. All questions were answered. 10/17/2023 Other hammer toe(s) (acquired), right foot (ICD-10 - M20.41) Hammertoe Deformity: Discussed various treatments for hammer toes with the patient . Discussed conservative care consisting of padding, wider shoes, anti-inflammatories, and orthotics. Discussed surgical treatment options and answered all questions about the intra-operative and post-operative treatment course. 11/21/2023 Tinea unguium (ICD-10 - B35.1) FUNGAL TOENAILS: Discussed various treatment options for fungal toenails including debridement, topical antifungals, oral antifungals, toenail avulsion, or toenail matrixectomy. Lamisil Repeat: Repeat Liver Function Tests after 6 weeks of oral Lamisil and if they are within normal limits, will renew final dose for a total of 12 weeks of therapy. 11/21/2023 Hallux valgus (acquired), right foot (ICD-10 - M20.11) Bunion: Discussed various treatments with the patient regarding hallux abducto valgus deformity. Discussed conservative care consisting of padding, wider shoes, anti-inflammatories, and orthotics. Discussed surgical treatment options and answered all questions about the intra-operative and post-operative treatment course. Shoe Recommendation: Advised patient on appropriate shoe gear for protection, healing and good foot health. Continue PowerSteps 03/19/2024 Tinea unguium (ICD-10 - B35.1) Nails 1-5 Bilateral were debrided extensively with nail nippers and emery board, reducing length and girth to pink healthy tissue with any subungual debris and necrotic tissue removed 03/19/2024 Acquired keratosis [keratoderma] palmaris et plantaris (ICD-10 - L85.1) A total of 2 corns or calluses, as described in the note above, were cut and pared utilizing a #15 blade 06/18/2024 Tinea unguium (ICD-10 - B35.1) FUNGAL TOENAILS: Discussed various treatment options for fungal toenails including debridement, topical antifungals, oral antifungals, toenail avulsion, or toenail matrixectomy. NAIL DEBRIDEMENT: Nails 1-5 Bilateral were debrided extensively with nail nippers and emery board, reducing length and girth to pink healthy tissue with any subungual debris and necrotic tissue removed 06/18/2024 Pain in right toe(s) (ICD-10 - M79.674) 06/18/2024 Pain in left toe(s) (ICD-10 - M79.675) 03/19/2024 Atherosclerosis of [place] arteries of extremities with intermittent claudication, bilateral legs (ICD-10 - I70.213) 11/21/2023 Other hammer toe(s) (acquired), right foot (ICD-10 - M20.41) Hammertoe Deformity: Discussed various treatments for hammer toes with the patient . Discussed conservative care consisting of padding, wider shoes, anti-inflammatories, and orthotics. Discussed surgical treatment options and answered all questions about the intra-operative and post-operative treatment course. 10/17/2023 Metatarsalgia, right foot (ICD-10 - M77.41) Metatarsalgia: I discussed anti-inflammatory treatment options and various means of immobilization with the patient. I educated the patient on icing and stretching, supportive shoegear, and the use of orthotic devices and bracing. 11/21/2023 Metatarsalgia, right foot (ICD-10 - M77.41) Metatarsalgia: I discussed anti-inflammatory treatment options and various means of immobilization with the patient. I educated the patient on icing and stretching, supportive shoegear, and the use of orthotic devices and bracing. 03/19/2024 Pain in right foot (ICD-10 - M79.671) 06/18/2024 Atherosclerosis of [place] arteries of extremities with intermittent claudication, bilateral legs (ICD-10 - I70.213) 10/17/2023 Tinea unguium (ICD-10 - B35.1) FUNGAL TOENAILS: Discussed various treatment options for fungal toenails including debridement, topical antifungals, oral antifungals, toenail avulsion, or toenail matrixectomy. Lamisil Initial Treatment: Order Liver Function tests prior to course of oral Lamisil. If the LFTS are within normal limits, order 6 weeks of Lamisil. Liver Function Test will be repeated after 6 weeks prior to final dose for a total of 12 weeks of therapy. 03/19/2024 Pain in left foot (ICD-10 - M79.672) 11/21/2023 Pain in right foot (ICD-10 - M79.671) 10/17/2023 Pain in right foot (ICD-10 - M79.671) 10/17/2023 Other Revisional surgery could prove challenging. Given the appearance of the 1st metatarsalphalangeal joint, a revisional Joe would not help given the erosion of the cartilage. Surgery could entail arthoresis or arthroplasty / Calles Todd. The 2nd ray would be best served with a 2nd metatarsal head resection Plan Of Treatment Pending Test Test Name Order Date Liver Function Test (LFT) 10/17/2023 Liver Function Test (LFT) 11/21/2023 Next Appt Details Provider Name:LETY PACE, 01:20:00 PM, [address], [facility], [place], [place], [id number], Insurance Providers Payer Name Payer Address Payer Phone Subscriber Number Group Number Insured Name Patient Relationship to Insured Coverage Start Date Coverage End Date [employer] PPO [address] [place] [id number] VIKKI SWANSON Self - patient is the insured
--- OUTSIDE RECORDS SUMMARY | 2024-07-05 00:48 | XMS_ITS ---
Author Organization [facility] Address [address] [place], [place] [id number] Care Team Providers Care Rn Practitioner Name Role Phone COLLEEN ACEVEDO Unavailable [phone] Lety Walker Unavailable Unavailable SNOOK, LETY Unavailable [phone] Encounters Encounter Location Date Provider Diagnosis [facility] [address] [place], [place] [phone] 01/12/2024 LETYJOSY PACE Plan Of Treatment Next Appt Details Provider Name:LETY PACE, 01:20:00 PM, [address], [facility], [place], [place], [phone], Progress Notes * VIKKI SWANSON MDOB:1960 (63 yo F)Acc No.[id number]:01/12/2024 Patient: Cecily LOAISHAVIKKI :1960 A ge:63 Y S ex:Female Address:[address], [place], [address] * true * Date: Generated for Tessai ke/Famigdaliag/eTransmitting on: 0 07/05/2024 12:48 AM CDT
--- OUTSIDE RECORDS SUMMARY | 2024-07-05 00:49 | XMS_ITS ---
Author Organization [facility] Address [address] [place], [place] [phone] Care Team Providers Care Procedures Tech Name Role Phone COLLEEN ACEVEDO Unavailable [phone] Lety Walker Unavailable Unavailable LETY PACE Unavailable [phone] Allergies Allergen (clinical drug ingredient) Drug/Non Drug Allergy documented on EMR Reaction Allergy Type Onset Date Status Substance with penicillin structure and antibacterial mechanism of action (substance) Penicillins Unknown Drug Allergy 08/27/2020 active REASON FOR VISIT Patient presents for at-risk foot care . The patient has painful toenails that cause difficulty with ambulation and shoegear. The onset is gradual Immunizations Vaccine Route Administration Date Status Comme nts Influenza, high dose seasonal Unknown 06/18/2024 Refuse d Pneumococcal conjugate PCV 13 Unknown 06/18/2024 Refuse d Vital Signs Weight 230 lbs 06/18/2024 Weight-kg 104.33 kg 06/18/2024 Encounters Encounter Location Date Provider Diagnosis [facility] [address] [place], [place] [id number] 06/18/2024 LETY PACE Tinea unguium B35.1 ; Pain in right toe(s) M79.674 ; Pain in left toe(s) M79.675 and Atherosclerosis of tribal arteries of extremities with intermittent claudication, bilateral legs I70.213 Assessments Encounter Date Diagnosis (ICD Code) Assessment Notes Treatment Notes Treatment Clinical Notes Section Notes 06/18/2024 Tinea unguium (ICD-10 - B35.1) FUNGAL [...] Pain in left toe(s) (ICD-10 - M79.675) 06/18/2024 Atherosclerosis of tribal arteries of extremities with intermittent claudication, bilateral legs (ICD-10 - I70.213) Plan Of Treatment Treatment Notes Assessment Notes Tinea unguium FUNGAL TOENAILS: Discussed various treatment options for fungal toenails including debridement, topical antifungals, oral antifungals, toenail avulsion, or toenail matrixectomy. NAIL DEBRIDEMENT: Nails 1-5 Bilateral were debrided extensively with nail nippers and emery board, reducing length and girth to pink healthy tissue with any subungual debris and necrotic tissue removed Next Appt Details Follow Up: 10-12 Weeks, Reas on: At Risk Foot care, sooner if problems arise Provider Name:LETY PACE, 01:20:00 PM, [address], [address], [id number], Progress Notes * VIKKI SWANSON MDOB:1960 (63 yo F)Acc No.[id number]:06/18/2024 Patient: Cecily GENEVAFIORELLAVIKKI Provider: Clare Pace DPM :1960 A ge:63 Y S ex:Female Date:06/18/2024 [address] [place] [address] Subjective: * Chief Complaints: * Selam gaytan presents for at-risk foot care . The patient has painful toenails that cause difficulty with ambulation and shoegear. The onset is gradual * HPI: H PI: General care P lucila presents to the office for at risk foot care. Patient states that their nails are thickened, elongated and painful. Patient states that it is aggravated by shoe gear. Onset is gradual. Patient denies being diabetic., Patient denies taking blood thinners., Date last seen by Dr. Walker was February 2024., Initials LB. sample. * ROS: G eneral / Constitutional: Patient denies c hills, fever, weakness, night sweats. M usculoskeletal: Patient denies c hildhood foot problems, weakness. P atient complains of b unions, joint pain, hammertoes. P eripheral Vascular: Patient denies u lceration of feet, cold extremities. ? S kin: Patient denies u lcerations, discoloration. P atient complains of n ail changes, fungal nails. N eurologic: Patient denies b alance difficulty, confusion, difficulty speaking, dizziness. * Medical History: * Surgical History: D enies Past Surgical History * Hospitalization/Major Diagno stic Procedure: D enies Past Hospitalization * Family History: F ather: PRN - Father: :: Respiratory disease,,known absent . M other: PRN - Mother: :: Arthritis,,known absent , :: Back Problem,,known absent , :: Hypertension,,known absent , :: Rheumatic fever,,known absent . B rother: SIB - Brother: :: Diabetes,,known absent , :: Neuropathy,,known absent . * Social History: M igrated Social History: M igrated Social History: Smoking Status : Never used tobacco , History of tobacco use : , Alcohol intake :. * Medications: N one * Allergies: P enicillins: Allergy - Onset Date 08/27/2020no[Allergies Verified] Objective: * Vitals: W t:230lbs, Wt-k.33 kg. * Examination: C onstitutional: Constitutional T he patient is awake, alert, well developed, well groomed and well nourished. D ermatologic: Skin findings: S kin is thin, atrophic and lacking pedal hair. Nail pathology: N ails 1, 2, 3, 4, and 5 bilateral are elongated, thick, discolored, and dystrophic with subungual debris. They are painful to palpation. ? V ascular: Dorsalis pedis pulse: 1 /4 b ilateral. Posterior tibial pulse: 0 /4 b ilateral. Capillary refill: g reater than 3 seconds. Edema: N o edema, bilateral. N eurologic: Gross sensation G ross sensation is intact to light touch.? M usculoskeletal: Muscle Strength M uscle strength is 5/5 in regards to dorsiflexion, plantarflexion, inversion, and eversion in bilateral lower extremities. ? Assessment: * Assessment: 1. T inea unguium - B35.1 (Primary) 2 . P ain in right toe(s) - M79.674? 3. P ain in left toe(s) - M79.675 4 . A therosclerosis of tribal arteries of extremities with intermittent claudication, bilateral legs - I70.213 Plan: * Treatment: * Immunizations: Influenza, high dose seasonal (Not administered - Refused: Patient decision) Pneumococcal conjugate PCV 13 (Not administered - Refused: Patient decision) ???Immunization record has been reviewed and updated. * Procedure Codes: * Follow Up: 1 0-12 Weeks (Reason: At Risk Foot care, sooner if problems arise) * Billing Information: * Visit Code: 75076 Office Visit, Est Pt., Level 3. * Procedure Codes: * Sign off status: Completed true * Provider: Clare Pace DPM Date: 06/18/2024 Generated for Heath dempsey/Paula/Helen on: 0 07/05/2024 12:48 AM CDT History and Physical Notes * HPI (History of Present Illness) Category Sub-Category Detail Notes Category Not es HPI General care Patient presents to the office for at risk foot care. Patient states that their nails are thickened, elongated and painful. Patient states that it is aggravated by shoe gear. Onset is gradual. Patient denies being diabetic., Patient denies taking blood thinners., Date last seen by Dr. Walker was February 2024., Initials LB sample Examination Category Sub-Category Detail Notes Category Not es Dermatologic Skin findings: Skin is thin, at rophic and lacking pedal hair Nail pathology: Nails 1, 2, 3, 4, an d 5 bilateral are elongated, thick, discolored, and dystrophic with subungual debris. They are painful to palpation Neurologic Gross sensation Gross sensation is intact to light touch Vascular Dorsalis pedis pulse: 1/4 bilateral Edema: No edema, bilateral Capillary refill: greater than 3 secon ds Posterior tibial pulse: 0/4 bilateral Musculoskeletal Muscle Strength Muscle strength is 5/5 in regards to dorsiflexion, plantarflexion, inversion, and eversion in bilateral lower extremities Constitutional Constitutional The patient is a wake, alert, well developed, well groomed and well nourished
--- NOTE | 2024-07-05 07:15 | WPDHPUPDATE1 ---
History and Physical Update Update Date/Time: 07/05/24 07:15 History and Physical has been reviewed, including an updated exam of the patient. There are NO changes in the patient's condition. Risks, benefits, and alternatives have been discussed and questions answered. Patient agrees to proceed with procedure.
[2024-07-05 08:20] VITALS: BP 110/76; PULSE 66; RESP 16; TEMP 36.4; O2SAT 100; BMI 37.8
[2024-07-05] MEDS: ACETAMINOPHEN 500 MG TABLET 1000 MG PO (08:45)
[2024-07-05] MEDS: LACTATED RINGERS 1,000 ML 30 ML IV CONT (08:50)
--- NOTE | 2024-07-05 08:53 | P.PNAN_ITS ---
Anes - Initial Pre Proc Eval Procedure: Operation Date: 07/05/24 10:15 Proposed Procedures p Hysteroscopy, Dilation and Curettage - Jonny Coto MD Date/Time: 07/05/24 08:53 Surgeon: Jonny Coto MD Pre Op Diagnosis: Endometrial Hyperplasia Patient Data Age: 63 Gender: F Height: 1.68 m Weight: 108 kg Allergies Allergy/AdvReac Type Severity Reaction Status Date / Time Penicillins Allergy Unknown UNKNOWN Verified 06/29/24 11:00 Home Medications ?Medication ?Instructions ?Recorded ?Confirmed ?Type albuterol sulfate 90 mcg/actuation 1 inh inhalation Q4H PRN shortness 05/20/22 06/29/24 Rx aerosol inhaler of breath or wheezing #6.7 grams budesonide-formoterol HFA 80 2 puff inhalation Q12H #10.2 grams 05/28/24 06/29/24 Rx mcg-4.5 mcg/actuation aerosol inhaler (Symbicort) diclofenac sodium 50 mg 50 mg PO BID #60 tabs 06/06/24 06/29/24 Rx tablet,delayed release Patient hx anesthesia problems: none Family hx anesthesia problems: none Results Review: All pre-operative results and documents have been reviewed as part of the pre- operative evaluation. [facility] Past Medical History Medical History Mitral regurgitation Allergic rhinitis Mild persistent asthma Surgical History Surgical History History of hammer toe correction 2020 History of sinus surgery 2020 History of cataract extraction 2019 History of arthroscopic knee surgery L knee in 2012 History of arthroscopic knee surgery Bucket handle tear of right knee 1990, second surgery in 1999 History of tonsillectomy 1968 Family History Family History Father Emphysema lung Mother Hypertension Heart disease Sibling Heart disease Social History Social History Smoking status: Never smoker Second hand tobacco smoke exposure: No Alcohol intake: current Alcohol use details: 2 per month social Substance use: never Substance use type: does not use Other substance usage details: gummies occassional Do You Feel Safe in your Home?: Yes Lack of Transportation: No Lack of Food: Never True Current Housing: I Have Housing Concerned About Future Housing: No Difficulty Paying Gas/Electric Bills: No Difficulty Paying for Meds: No Currently Unemployed: No Education: Bachelor's Degree Difficulty w/ Childcare or Family Care: No Living arrangements: with family Additional living arrangements comments: to same sex partner Occupation/Education: retired Gender identity (if verbalized by the patient): Female Sexual Orientation (if Verbalized by the Patient): Lesbian, Ferreira, or Homosexual Anes - Eval Final PreProcedure Day of Procedure 07/05/24 08:53 Patient weight: obese Heart: regular rate and rhythm Lungs: clear to auscultation Airway: Mallampati scale class II Neurological: alert and oriented Last oral intake: >/= 8 hours ASA classification: III Emergent: no Anesthetic plan: proceed Anesthesia type and monitoring: general GIVS and standard monitoring Results Review: All pre-operative results and documents have been reviewed as part of the pre- operative evaluation. Informed Consent: The patient's anesthetic plan and its attendant risks and benefits were discussed with the patient/family/POA. Questions were solicited and answers provided to the satisfaction of the patient/family/POA.
[2024-07-05] MEDS: KETOROLAC 15 MG/ML VIAL (*BKC) IV PUSH (10:03)
--- NOTE | 2024-07-05 10:04 | W.PM.PROC2 ---
Procedure Note - Detailed Date of Procedure 07/05/24 Pre-op Diagnosis Endometrial Hyperplasia Post-op Diagnosis Same Procedure Performed 1. Hysteroscopy with uterine curettings 2. Endometrial polypectomy Surgeon Jonny Coto MD Anesthesia MAC Findings Stenotic cervix with overall atrophic appearing endometrial cavity. Small polyp was noted on the right lateral endometrial wall. Description of Procedure Patient prepped and draped usual manner for this procedure. Cervix was dilated to the hysteroscope to be placed which revealed findings as above. Using the polyp instrument the polyp was removed without difficulty. Curettings were then obtained of the endometrial cavity in total. Minimal tissue was removed as the cavity it did appear atrophic. Minimal bleeding and the patient was sent to recovery room in stable condition. Estimated Blood Loss 10 Drains No Packing No Pathology Yes Complications No immediate complications Condition Stable Disposition PACU [facility] Billing Surgery - Charge Forward: Surgery Billing
[2024-07-05 10:09] VITALS: BP 119/67; PULSE 69; RESP 14; O2SAT 100
[2024-07-05 10:35] VITALS: BP 133/77; PULSE 66
[2024-07-05 11:00] VITALS: BP 119/80; PULSE 68
== END 2024-07-05 11:08 | disposition home or self-care (01) ==
PROVIDERS: PCP Family Medicine; Visit Provider Obstetrics & Gynecology
PROC: 0U5B8ZZ Destruction of Endometrium, Via Natural or Artificial Opening Endoscopic (ICD-10-PCS; CPT 58563; principal; 2024-07-05 10:15)
DX: R93.89 Abnormal findings on diagnostic imaging of other specified body structures (principal); C54.1 Malignant neoplasm of endometrium; N84.0 Polyp of corpus uteri; N88.2 Stricture and stenosis of cervix uteri; J45.909 Unspecified asthma, uncomplicated; I34.0 Nonrheumatic mitral (valve) insufficiency; F12.90 Cannabis use, unspecified, uncomplicated; E66.9 Obesity, unspecified; Z68.37 Body mass index [BMI] 37.0-37.9, adult; Z79.51 Long term (current) use of inhaled steroids; Z98.890 Other specified postprocedural states; Z82.49 Family history of ischemic heart disease and other diseases of the circulatory system
CPT/HCPCS: 58558; 88305; 88342; A9270; J1885; J2003; J2250; J2405; J2704; J3010; J7120